=== PATIENT | female | born 1995 | race Caucasian/White ===

== ENCOUNTER → 2018-09-22 | Outpatient (REF) | payer OTHER ==
[2018-09-22 13:56] LABS: INFLUENZA A AMPLIFICATION NEGATIVE (NEGATIVE); INFLUENZA B AMPLIFICATION NEGATIVE (NEGATIVE)
== END ==
LOC: M LAB REF 13:12
DX: Z20.828 Contact with and (suspected) exposure to other viral communicable diseases (principal)

== ENCOUNTER 2019-02-20 20:29 | Emergency (ER) | payer OTHER ==
[~2019-02-20] VITALS: Ht 160 cm; Wt 56.8 kg
[2019-02-20] MEDS ORDERED: BCP (20:37)
[2019-02-20] MEDS ORDERED: DOXY1CAP60 PO (20:37)
[2019-02-20] MEDS ORDERED: SPIR50TA4 PO (20:37)
[2019-02-20] MEDS ORDERED: ADACEL/BOOSTRIX VACCINE (DIPHTH/PERTUSS/ACELL/TETANUS)0.5ML SYR (90715) IM ONE (21:45)
[2019-02-20] MEDS ORDERED: IBUPROFEN 400 MG TAB PO ONE (21:45)
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
[2019-02-20 23:14] VITALS: BP 112/70
== END 2019-02-20 23:15 | disposition home or self-care (01) ==
LOC: M ED 20:29
DX: S60.221A Contusion of right hand, initial encounter (principal); S60.511A Abrasion of right hand, initial encounter; V43.52XA Car driver injured in collision with other type car in traffic accident, initial encounter; Y92.9 Unspecified place or not applicable; Y93.9 Activity, unspecified; Y99.9 Unspecified external cause status; Z79.3 Long term (current) use of hormonal contraceptives; Z79.899 Other long term (current) drug therapy